=== PATIENT | female | born 1970 | race African-American/Black ===

== ENCOUNTER 2021-06-16 13:31 | Inpatient (IN) | payer MEDICAID ==
[~2021-06-16] VITALS: Ht 157.5 cm; Wt 63.2 kg
[2021-06-16 14:25] LABS: CLARITY URINE CLEAR (CLEAR); COLOR URINE YELLOW (YELLOW); KETONES URINE 1+ (NEGATIVE); LEUKOCYTE ESTERASE URINE NEGATIVE (NEGATIVE); NITRITE URINE POSITIVE (NEGATIVE); OCCULT BLOOD URINE NEGATIVE (NEGATIVE); PH URINE 7.5 (4.5-8.0); PROTEIN URINE NEGATIVE (NEGATIVE); SPECIFIC GRAVITY URINE 1.011 (1.005-1.030); UROBILINOGEN URINE 0.2 E.U./dL (0.2-1.0)
[2021-06-16] MEDS ORDERED: VISCOUS LIDOCAINE 2% 15 ML UDC PO STA (14:40)
[2021-06-16] MEDS ORDERED: KETOROLAC 30MG/ML VIAL IV STA (14:40)
[2021-06-16] MEDS ORDERED: SODIUM CHLORIDE 0.9% 1,000 ML IV ONE ×2 (14:45→17:30)
[2021-06-16 15:20] LABS: CHLORIDE 103 mEq/L (98-107)
[2021-06-16 15:22] LABS: BASOPHILS % 0.6 % (0.0-2.0); EOSINOPHILS % 2.8 % (0.0-5.0); HEMATOCRIT. 42.2 % (36.0-48.0); HEMOGLOBIN. 13.7 g/dL (12.0-16.0); LYMPHOCYTES % 10.9 % (20.0-50.0); MEAN CORPUSCULAR VOLUME 89.1 fL (81.0-99.0); MEAN PLATELET VOLUME 8.8 fl (7.4-10.4); MONOCYTES % 5.7 % (2.0-8.0); PLATELET 317 x1000/uL (130-400); RED BLOOD CELL COUNT 4.73 mill/uL (4.2-5.4); RED CELL DISTRIBUTION WIDTH 14.9 % (11.6-14.6)
[2021-06-16] MEDS ORDERED: HALOPERIDOL LACTATE 5MG/ML VIAL IM NR (16:00)
[2021-06-16] MEDS ORDERED: MORPHINE SULFATE 4 MG/ML CPJ (NOT FOR IM USE) IV NR (17:30)
[2021-06-16] MEDS ORDERED: MORPHINE SULFATE 4 MG/ML CPJ (NOT FOR IM USE) IV ONE (21:15)
[2021-06-16] MEDS ORDERED: ACETAMINOPHEN 325MG TABLET PO PRN ×2 (22:15)
[2021-06-16] MEDS ORDERED: ZOLPIDEM TARTRATE 5MG TABLET PO PRN (22:15)
[2021-06-16] MEDS ORDERED: ONDANSETRON HCL 4MG/2ML INJ IV PRN (22:15)
[2021-06-16] MEDS ORDERED: MAGNESIUM/ALUMINUM HYDROXIDE/SIMETHICONE 30ML UDC PO PRN (22:15)
[2021-06-16] MEDS ORDERED: DOCUSATE SODIUM 100MG CAPSULE PO PRN (22:15)
[2021-06-16] MEDS ORDERED: NA PHOS,M-B/NA PHOS,DI-BA ENEMA 118ML PR PRN (22:15)
[2021-06-16] MEDS ORDERED: IPRATROPIUM/ALBUTEROL 0.5-3(2.5)MG/3ML NEB NEB PRN (22:15)
[2021-06-16] MEDS ORDERED: GUAIFENESIN 200MG/10ML SUGAR FREE UDC PO PRN (22:15)
[2021-06-16] MEDS ORDERED: KETOROLAC 15MG/ML VIAL IV PRN (22:15)
[2021-06-16] MEDS ORDERED: NITROGLYCERIN 0.4MG TABLET SL SL PRN (22:15)
[2021-06-16 22:47] LABS: ETHANOL BLOOD < 10 mg/dL
[2021-06-16 22:48] LABS: TOTAL IRON BINDING CAPACITY 380 ug/dL (250-450)
[2021-06-16] MEDS: KETOROLAC 30MG/ML VIAL IV PRN (23:15)
[2021-06-16] MEDS: ENOXAPARIN 40MG/0.4ML SYR SUBCUT SCH (23:15)
[2021-06-16] MEDS: SODIUM CHLORIDE 0.9% 1,000 ML IV SCH (23:16)
[2021-06-16 23:19] LABS: VITAMIN B12 SERUM 1225 pg/mL (211-911)
[2021-06-16] MEDS ORDERED: IOHEXOL-300 100 ML BOTTLE ONE (23:24)
[2021-06-16 23:59] LABS: FOLIC ACID (FOLATE) SERUM > 20.00 ng/mL (>5.38)
[2021-06-17] MEDS: TRAMADOL 50MG TABLET PO PRN ×3 (02:17→19:52)
[2021-06-17] MEDS: AMLODIPINE 10MG TABLET PO SCH ×2 (03:37→09:19)
[2021-06-17] MEDS: SODIUM CHLORIDE 0.9% 1,000 ML IV SCH ×2 (05:10→18:19)
[2021-06-17] MEDS: KETOROLAC 30MG/ML VIAL IV PRN ×4 (05:31→23:57)
[2021-06-17] MEDS: PANTOPRAZOLE SODIUM 40 MG/VIAL IV SCH (09:21)
[2021-06-17] MEDS: CLONIDINE 0.1MG TABLET PO PRN (11:45)
[2021-06-17 12:00] VITALS: BP 142/94
[2021-06-17 13:36] LABS: MEAN CORPUSCULAR HEMOGLOBIN 29.1 pg (28.0-32.0); MEAN CORPUSCULAR VOLUME 89.5 fL (81.0-99.0); MEAN PLATELET VOLUME 8.7 fl (7.4-10.4); PLATELET 302 x1000/uL (130-400); RED CELL DISTRIBUTION WIDTH 14.7 % (11.6-14.6)
[2021-06-17 13:43] LABS: CHLORIDE 105 mEq/L (98-107)
[2021-06-17 13:49] LABS: PHOSPHORUS 2.3 mg/dL (2.5-4.9)
[2021-06-17] MEDS ORDERED: METO-396 PO (14:08)
[2021-06-17] MEDS ORDERED: LISI-186 PO (14:09)
[2021-06-17 14:37] LABS: AMYLASE 2765 IU/L (25-115)
[2021-06-17 16:00] VITALS: BP 146/92
[2021-06-17 20:00] VITALS: BP 144/88
[2021-06-17 20:29] LABS: PLATELET ESTIMATE NORMAL
[2021-06-17] MEDS: ENOXAPARIN 40MG/0.4ML SYR SUBCUT SCH (20:29)
[2021-06-17] MEDS ORDERED: NALOXONE HCL 0.4MG/ML VIAL IV PRN (22:45)
[2021-06-18] VITALS: BP 156/104
[2021-06-18] MEDS: SODIUM CHLORIDE 0.9% 1,000 ML IV SCH ×4 (00:03→20:28)
[2021-06-18] MEDS: CLONIDINE 0.1MG TABLET PO PRN (00:14)
[2021-06-18] MEDS: TRAMADOL 50MG TABLET PO PRN ×3 (03:52→20:28)
[2021-06-18 04:00] VITALS: BP 126/99
[2021-06-18 08:00] VITALS: BP 167/104
[2021-06-18] MEDS: AMLODIPINE 10MG TABLET PO SCH (08:21)
[2021-06-18] MEDS: PANTOPRAZOLE SODIUM 40 MG/VIAL IV SCH (08:21)
[2021-06-18] MEDS: KETOROLAC 30MG/ML VIAL IV PRN ×2 (08:22→16:18)
[2021-06-18 12:00] VITALS: BP 148/97
[2021-06-18 16:00] VITALS: BP 139/91
[2021-06-18 20:00] VITALS: BP 136/87
[2021-06-18] MEDS: ENOXAPARIN 40MG/0.4ML SYR SUBCUT SCH (20:27)
[2021-06-19] VITALS: BP 148/91
[2021-06-19] MEDS: KETOROLAC 30MG/ML VIAL IV PRN ×3 (00:28→17:14)
[2021-06-19 04:00] VITALS: BP 138/85
[2021-06-19 07:11] LABS: HEMATOCRIT. 35.3 % (36.0-48.0); HEMOGLOBIN. 11.9 g/dL (12.0-16.0); MEAN CORPUSCULAR VOLUME 88.9 fL (81.0-99.0); PLATELET 266 x1000/uL (130-400); RED BLOOD CELL COUNT 3.97 mill/uL (4.2-5.4); RED CELL DISTRIBUTION WIDTH 14.7 % (11.6-14.6)
[2021-06-19 07:29] LABS: CHLORIDE 108 mEq/L (98-107)
[2021-06-19 07:51] LABS: PHOSPHORUS 1.8 mg/dL (2.5-4.9)
[2021-06-19 08:00] VITALS: BP 127/83
[2021-06-19 08:47] LABS: AMYLASE 1580 IU/L (25-115)
[2021-06-19] MEDS: AMLODIPINE 10MG TABLET PO SCH (09:19)
[2021-06-19] MEDS: FAMOTIDINE 20MG/2ML VIAL IV SCH ×2 (09:20→21:09)
[2021-06-19] MEDS: SODIUM CHLORIDE 0.9% 1,000 ML IV SCH ×3 (10:30→23:26)
[2021-06-19] MEDS: TRAMADOL 50MG TABLET PO PRN ×2 (11:51→23:29)
[2021-06-19 12:00] VITALS: BP 126/84
[2021-06-19] MEDS ORDERED: POTASSIUM PHOS,M-BASIC-D-BASIC 30 MMOL in DEXT 5% WATER 500 ML IV NR (12:00)
[2021-06-19] MEDS ORDERED: MAGNESIUM 1 G PREMIX 100 ML IV NR (12:00)
[2021-06-19 14:02] LABS: PLATELET ESTIMATE NORMAL
[2021-06-19 16:00] VITALS: BP 130/97
[2021-06-19] MEDS ORDERED: KCL 20MEQ/100ML PREMIX 100 ML IV NR (16:00)
[2021-06-19 20:00] VITALS: BP 148/91
[2021-06-19] MEDS: ENOXAPARIN 40MG/0.4ML SYR SUBCUT SCH (21:09)
[2021-06-20] VITALS: BP 149/100
[2021-06-20] MEDS: CLONIDINE 0.1MG TABLET PO PRN (00:32)
[2021-06-20 04:00] VITALS: BP 103/67
[2021-06-20] MEDS: KETOROLAC 30MG/ML VIAL IV PRN (04:48)
[2021-06-20] MEDS: SODIUM CHLORIDE 0.9% 1,000 ML IV SCH (05:31)
[2021-06-20 08:00] VITALS: BP 109/81
[2021-06-20 08:38] LABS: BASOPHILS % 0.3 % (0.0-2.0); EOSINOPHILS % 4.1 % (0.0-5.0); HEMATOCRIT. 31.8 % (36.0-48.0); LYMPHOCYTES % 9.1 % (20.0-50.0); MEAN CORPUSCULAR HEMOGLOBIN 30.4 pg (28.0-32.0); MEAN CORPUSCULAR VOLUME 88.1 fL (81.0-99.0); MEAN PLATELET VOLUME 8.9 fl (7.4-10.4); MONOCYTES % 10.1 % (2.0-8.0); NEUTROPHILS % 76.4 % (40.0-76.0); PLATELET 252 x1000/uL (130-400); RED BLOOD CELL COUNT 3.61 mill/uL (4.2-5.4); RED CELL DISTRIBUTION WIDTH 14.9 % (11.6-14.6)
[2021-06-20] MEDS: FAMOTIDINE 20MG/2ML VIAL IV SCH (08:46)
[2021-06-20] MEDS: AMLODIPINE 10MG TABLET PO SCH (08:46)
[2021-06-20 09:19] LABS: CHLORIDE 108 mEq/L (98-107)
[2021-06-20 09:27] LABS: PHOSPHORUS 2.3 mg/dL (2.5-4.9)
[2021-06-20 09:46] LABS: AMYLASE 1832 IU/L (25-115)
[2021-06-20 11:44] VITALS: BP 109/81
== END 2021-06-20 12:15 | disposition home or self-care (01) | DRG 282 ==
LOC: ER 13:31 → MICUSO 20:42 → EDBEDREQTM 20:44 → EDBEDREQ 20:44 → 6EST 06-17 11:56
PROVIDERS: ADMIT Internal Medicine; ATTEND Internal Medicine
DX: K85.90 Acute pancreatitis without necrosis or infection, unspecified (principal); I10 Essential (primary) hypertension; K86.3 Pseudocyst of pancreas; Z79.899 Other long term (current) drug therapy
CPT/HCPCS: 36415; 74177; 76705; 80053; 80320; 81003; 82150; 82607; 82746; 83036; 83540; 83550; 83735; 84100; 85025; 93970; 99285; C9113; J1630; J1650; J1885; J2270; J3475; J3480; J3490; J7030; J7060; Q9967; G0480